=== PATIENT | female | born 1965 | race Caucasian/White ===

== ENCOUNTER 2017-07-26 17:35 | Emergency (ER) | payer MEDICAID ==
[2017-07-26] MEDS: KETOROLAC 30 MG INJ IM (19:38)
== END 2017-07-26 20:47 | disposition home or self-care (01) ==
LOC: FTE 17:35
DX: S99.912A Unspecified injury of left ankle, initial encounter (principal); W18.39XA Other fall on same level, initial encounter; Y92.9 Unspecified place or not applicable
CPT/HCPCS: 73610; 73630-LT; 96372; 99284-25